=== PATIENT | female | born 1945 | race Two or more races ===

== ENCOUNTER 2017-03-24 09:59 | Emergency (ER) | payer OTHER ==
[2017-03-24 10:23] VITALS: BP 125/43; PULSE 72; TEMP 98.6; BMI 24.0
--- NOTE | 2017-03-24 10:34 | PDOC ---
History of Present Illness - General Chief Complaint: Pain Stated Complaint: LEGT PAIN Time Seen by Provider: 03/24/17 10:02 - History of Present Illness Initial Comments: 03/24/17 10:33 72 F with DM presents with acute on chronic L knee pain. Pt states that she has had pain in the knee for 30 years and was previously diagnosed with arthritis. However, over the past 4 days, it has gotten much more severe, to the point of being painful with any ambulation. Pt states she is still able to stand on it and has full range of motion but it feels like it catches when she tries to walk. Pt denies any swelling or redness. Denies calf pain. Denies recent immobilization. Denies F/C. Denies recent trauma/fall. Past History - Past Medical History Allergies/Adverse Reactions: Allergies Allergy/AdvReac Type Severity Reaction Status Date / Time No Known Allergies Allergy Verified 03/24/17 10:12 Home Medications: Ambulatory Orders Ergocalciferol [Vitamin D2] 50,000 unit PO Q7D@1000 03/24/17 Glipizide 10 mg PO TID 03/24/17 Insulin (Levemir) [Levemir Flexpen -] 4 units SQ HS 03/24/17 Diabetes: Yes Other medical history: ARTHRITIS,DIZZINESS - Suicide/Smoking/Psychosocial Hx Smoking History: Never smoked Have you smoked in the past 12 months: No Information on smoking cessation initiated: No Hx Alcohol Use: No Drug/Substance Use Hx: No Substance Use Type: None Review of Systems - Review of Systems Comments:: 03/24/17 10:52 "GENERAL/CONSTITUTIONAL: No fever or chills. No weakness. HEAD, EYES, EARS, NOSE AND THROAT: No change in vision. No ear pain or discharge. No sore throat. CARDIOVASCULAR: No chest pain or shortness of breath. RESPIRATORY: No cough, wheezing, or hemoptysis. GASTROINTESTINAL: No nausea, vomiting, diarrhea or constipation. GENITOURINARY: No dysuria, frequency, or change in urination. MUSCULOSKELETAL: +L knee pain, no swelling. No neck or back pain. SKIN: No rash NEUROLOGIC: No headache, vertigo, loss of consciousness, or change in strength/ sensation. ENDOCRINE: No increased thirst. No abnormal weight change. HEMATOLOGIC/LYMPHATIC: No anemia, easy bleeding, or history of blood clots. ALLERGIC/IMMUNOLOGIC: No hives or skin allergy. " *Physical Exam - Vital Signs Last Vital Signs Temp Pulse Resp BP Pulse Ox 98.6 F 72 18 125/43 99 03/24/17 09:59 03/24/17 09:59 03/24/17 09:59 03/24/17 09:59 03/24/17 09:59 - Physical Exam Comments: 03/24/17 10:53 "GENERAL: Awake, alert, and fully oriented, in no acute distress HEAD: No signs of trauma EYES: PERRLA, EOMI, sclera anicteric, conjunctiva clear ENT: Auricles normal inspection, hearing grossly normal, nares patent, oropharynx clear without exudates. Moist mucosa NECK: Nontender, no stepoffs, Normal ROM, supple, no lymphadenopathy, JVD, or masses LUNGS: Breath sounds equal, clear to auscultation bilaterally. No wheezes, and no crackles HEART: Regular rate and rhythm, normal S1 and S2, no murmurs, rubs or gallops ABDOMEN: Soft, nontender, normoactive bowel sounds. No guarding, no rebound. No masses EXTREMITIES: L knee tender to palpation over patellar ligament, no effusion, Normal range of motion. No deformity, no swelling to lower leg. No cords, erythema, or tenderness NEUROLOGICAL: Cranial nerves II through XII intact. 5/5 strength and sensation in all extremities, Normal speech, normal gait SKIN: Warm, Dry, normal turgor, no rashes or lesions noted. " ED Treatment Course - RADIOLOGY Radiology Studies Ordered: Category Date Time Status KNEE 3 POS-LEFT [RAD] Stat Radiology 03/24/17 10:20 Ordered DUPLEX VASCUL US-1 LEG [US] Stat Ultrasound 03/24/17 10:20 Ordered Medical Decision Making - Medical Decision Making 03/24/17 10:56 72 F with atraumatic L knee pain x 30 years, worsened over past 4 days. Likely chronic arthritis. No deformity on exam to suggest acute fx. No effusion or redness to suggest inflammatory process such as gout/pseudogout. No fevers or limitation in range of motion to suggest septic arthritis. - XR - US to r/o DVT - f/u ortho 03/24/17 11:49 US and XR negative for acute fx and DVT. Pt informed of results and understands need for orthopedics f/u to further evaluate knee pain. *DC/Admit/Observation/Transfer Diagnosis at time of Disposition: Knee pain - Discharge Dispostion Disposition: HOME Condition at time of disposition: Stable - Referrals Referrals: Eugene Reyes MD [Staff Physician] - Radha Mireles MD [Staff Physician] - - Patient Instructions Printed Discharge Instructions: DI for Knee Pain Additional Instructions: Call the number provided to make an appointment with an orthopedic surgeon. You will need an MRI for further evaluation of your knee pain. See your primary care doctor within 1-2 weeks for a re-evaluation. If you do not have one, you can call our clinic at the number provided to make an appointment. If you experience worsening pain, swelling, redness, fevers, or any other concerning symptoms, return to the ER immediately. - Attestations Physician Attestion: 03/24/17 11:51 I, Dr. Eugene Martinez MD, attest that this document has been prepared under my direction and personally reviewed by me in its entirety. I further attest, that it accurately reflects all work, treatment, procedures and medical decision -making performed by me.
== END 2017-03-24 11:58 | disposition home or self-care (01) ==
LOC: FER 09:59
DX: M25.562 Pain in left knee (principal)
CPT/HCPCS: 73562-TC-LT; 93971-TC; 99282-25

== ENCOUNTER 2017-06-12 12:08 | Emergency (ER) | payer OTHER ==
[2017-06-12] MEDS ORDERED: KETOROLAC TROMETHAMINE 30 MG/1 ML VIAL IM ONE (12:28)
[2017-06-12 12:29] VITALS: BP 154/74; PULSE 98; TEMP 98.1; BMI 24.4
[2017-06-12] MEDS ORDERED: ACETAMINOPHEN 325 MG TABLET (FP) PO ONE (12:29)
[2017-06-12] MEDS ORDERED: KETOROLAC TROMETHAMINE 30 MG/1 ML VIAL ONE (12:32)
--- NOTE | 2017-06-12 13:02 | PDOC ---
History of Present Illness - General Chief Complaint: Pain Stated Complaint: RIGHT ARM PAIN Time Seen by Provider: 06/12/17 12:15 History Source: Patient Exam Limitations: No Limitations - History of Present Illness Initial Comments: 06/12/17 12:56 72-year-old female history of diabetes hypertension here today complaining of right arm pain and shoulder pain. Patient states she has had muscle pain in the right upper extremity 4 months however last night she was trying to push or sup up from a supine position with that arm and suddenly felt a sharp pain in her right upper half of her arm states now she has pain with trying to abduct the arm. Denies any new weakness or numbness. No new neck or back pain no chest pain or shortness of breath that is new or different pain is worse with movement she took tramadol earlier about 2 hours ago with minimal relief. Has had cortisone injections due to severe arthritis in the past can remember the name of her orthopedist Past History - Past Medical History Allergies/Adverse Reactions: Allergies Allergy/AdvReac Type Severity Reaction Status Date / Time No Known Allergies Allergy Verified 06/12/17 12:24 Home Medications: Ambulatory Orders Ergocalciferol [Vitamin D2] 50,000 unit PO Q7D@1000 03/24/17 Glipizide 10 mg PO DAILY 03/24/17 Insulin (Levemir) [Levemir Flexpen -] 4 units SQ HS 03/24/17 Atenolol [Tenormin -] 12.5 mg PO BID 06/12/17 Ibuprofen [Motrin -] 600 mg PO TID #90 tablet 06/12/17 Omeprazole 20 mg PO DAILY PRN 06/12/17 Tramadol HCl [Ultram] 50 mg PO ONCE 06/12/17 COPD: No Diabetes: Yes Disorders: Yes (GERD) HTN: Yes Other medical history: TINNITUS - Suicide/Smoking/Psychosocial Hx Smoking History: Never smoked Have you smoked in the past 12 months: No Hx Alcohol Use: No Drug/Substance Use Hx: No Substance Use Type: None Review of Systems - Review of Systems Constitutional: No: Chills, Diaphoresis HEENTM: No: Blurred Vision Respiratory: No: Cough, Orthopnea Cardiac (ROS): No: Chest Pain ABD/GI: No: Abdominal Distended Musculoskeletal: Yes: Joint Pain Integumentary: No: Bruising, Change in Color Neurological: No: Headache, Numbness All Other Systems: Reviewed and Negative *Physical Exam - Vital Signs Last Vital Signs Temp Pulse Resp BP Pulse Ox 98.1 F 98 H 16 154/74 98 06/12/17 12:12 06/12/17 12:12 06/12/17 12:12 06/12/17 12:12 06/12/17 12:12 - Physical Exam General Appearance: Yes: Appropriately Dressed HEENT: positive: Normal ENT Inspection Neck: positive: Trachea midline Respiratory/Chest: positive: Lungs Clear, Normal Breath Sounds Cardiovascular: positive: Regular Rhythm, Regular Rate, S1, S2 Musculoskeletal: positive: Normal Inspection, Other (Right arm with muscular tenderness over the humeral region pain with passive range of motion beyond 90 abduction. Elbow/wrist FROM/NT. Distally neurovascularly intact no midline spinal tenderness right sided mild trapezial muscle tenderness) Extremity: positive: Normal Range of Motion (see above). negative: Normal Capillary Refill Integumentary: positive: Normal Color, Dry, Warm Neurologic: positive: Fully Oriented, Alert, Normal Mood/Affect ED Treatment Course - RADIOLOGY Radiology Studies Ordered: Category Date Time Status HUMERUS-RIGHT [RAD] Stat Radiology 06/12/17 12:29 Taken SHOULDER-RIGHT [RAD] Stat Radiology 06/12/17 12:29 Taken - Medications Given in the ED: ED Medications Discontinued Medications Generic Name Dose Route Start Last Admin Trade Name Freq PRN Reason Stop Dose Admin Acetaminophen 650 mg 06/12/17 12:29 06/12/17 12:36 Tylenol - PO 06/12/17 12:30 Not Given ONCE ONE Ketorolac Tromethamine 30 mg 06/12/17 12:28 06/12/17 12:35 Toradol Injection - IM 06/12/17 12:29 30 mg ONCE ONE Administration Medical Decision Making - Medical Decision Making 06/12/17 13:00 Status post right upper extremity injury and now pain with abduction. Differential includes humeral fracture versus shoulder injury sutures rotator cuff injury and trapezial spasm. Bicep tendon is intact and flexion of the right arm at the elbow as far out of 5 plan for anti-inflammatory medication with Motrin x-rays of the humerus and right shoulder and likely outpatient orthopedic follow-up X-rays are n negative *DC/Admit/Observation/Transfer Diagnosis at time of Disposition: Rotator cuff injury, Muscle strain - Discharge Dispostion Disposition: HOME Condition at time of disposition: Improved Admit: No - Prescriptions Prescriptions: Ibuprofen [Motrin -] 600 mg PO TID #90 tablet - Referrals Referrals: Tyrell Castillo [Primary Care Provider] - Jl Goode MD [Staff Physician] - - Patient Instructions Printed Discharge Instructions: Shoulder Sprain Additional Instructions: Follow-up with an orthopedist within 1-2 weeks as needed for persistent pain. See referral information for Dr. Goode call to schedule you can take ibuprofen 600 mg every 8 hours as needed for pain could also take Tylenol 500 mg every 6 hours as needed for pain return for worsening symptoms weakness numbness or any concerns. Your x-rays are negative for any fracture today - Post Discharge Activity
== END 2017-06-12 13:18 | disposition home or self-care (01) ==
LOC: FER 12:08
PROC: 3E0233Z Introduction of Anti-inflammatory into Muscle, Percutaneous Approach (ICD-10-PCS; principal; 2017-06-12)
DX: S46.011A Strain of muscle(s) and tendon(s) of the rotator cuff of right shoulder, initial encounter (principal); X58.XXXA Exposure to other specified factors, initial encounter; Y93.9 Activity, unspecified; Y92.9 Unspecified place or not applicable; S46.001A Unspecified injury of muscle(s) and tendon(s) of the rotator cuff of right shoulder, initial encounter; E11.9 Type 2 diabetes mellitus without complications; I10 Essential (primary) hypertension; K21.9 Gastro-esophageal reflux disease without esophagitis
CPT/HCPCS: 73030-TC-RT; 73060-TC-RT; 99282-25

== ENCOUNTER 2020-05-25 07:18 | Emergency (ER) | payer OTHER ==
[2020-05-25 07:36] VITALS: BMI 21.7
[2020-05-25] MEDS ORDERED: FAMOTIDINE 20 MG/50 ML IVPB 20 MG/50 ML MG IVPB ONE ×2 (07:56→08:17)
[2020-05-25] MEDS ORDERED: LACTATED RINGERS SOLUTION 1000 ML INFUS.BAG IV ONE ×2 (07:56→10:33)
[2020-05-25] MEDS ORDERED: SODIUM CHLORIDE 0.9% 1000 ML INFUS.BAG IV ONE (08:19)
[2020-05-25 09:11] LABS: BASO % 0.3 % (0-2.0); HEMATOCRIT 35.8 % (32.4-45.2); HEMOGLOBIN 11.7 GM/dL (10.7-15.3); LYMPH % 15.9 % (8-40); MCH 28.5 pg (25.7-33.7); MCHC 32.5 g/dl (32.0-36.0); MEAN CELL VOLUME 87.8 fl (80-96); MEAN PLT VOLUME 10.1 fl (7.5-11.1); NEUT % 72.8 % (42.8-82.8); PLATELET COUNT 157 K/MM3 (134-434); RBC 4.08 M/mm3 (3.60-5.2); WHITE BLOOD COUNT 3.1 K/mm3 (4.0-10.0)
[2020-05-25 09:15] LABS: EPI CELLS >36 /uL (0-25.1); HYALINE CASTS 1 /uL (0-3.1); URINE APPEARANCE CLEAR; URINE BACTERIA 505 /uL (0-1359); URINE BILIRUBIN NEGATIVE (NEGATIVE); URINE COLOR YELLOW; URINE GLUCOSE (UA) TRACE (NEGATIVE); URINE KETONE NEGATIVE (NEGATIVE); URINE LEUK ESTERASE TRACE (NEGATIVE); URINE NITRITE NEGATIVE (NEGATIVE); URINE PROTEIN NEGATIVE (NEGATIVE); URINE RBC 32 /uL (0-23.9); URINE UROBILINOGEN 0.2 mg/dL (0.2-1.0); URINE WBC 24 /uL (0-25.8)
[2020-05-25 09:18] LABS: INR 1.03 (0.83-1.09); PROTHROMBIN TIME (PATIENT) 12.7 SEC (9.7-13.0)
[2020-05-25 09:20] LABS: ACTIVATED PTT 29.7 SECONDS (25.2-36.5)
[2020-05-25 09:29] LABS: CHLORIDE 99 mmol/L (98-107); POTASSIUM 3.6 mmol/L (3.5-5.1); SODIUM 134 mmol/L (136-145)
[2020-05-25 09:31] LABS: ANION GAP 9 MMOL/L (8-16); BLOOD UREA NITROGEN 9.8 mg/dL (7-18); CALCIUM 8.4 mg/dL (8.5-10.1); CO2 26 mmol/L (21-32); LIPASE 289 U/L (73-393)
[2020-05-25 09:32] LABS: ALBUMIN 3.2 g/dl (3.4-5.0); GLUCOSE,RANDOM 228 mg/dL (74-106); MAGNESIUM 2.1 mg/dL (1.8-2.4)
[2020-05-25 09:34] LABS: CREATININE 0.9 mg/dL (0.55-1.3); SGOT/AST 20 U/L (15-37); SGPT/ALT 17 U/L (13-61)
[2020-05-25 09:36] LABS: BILIRUBIN,TOTAL 0.4 mg/dL (0.2-1); TOT PROT 6.6 g/dl (6.4-8.2)
[2020-05-25 09:37] LABS: ALK PHOS 68 U/L (45-117)
[2020-05-25 12:08] VITALS: BP 123/58; PULSE 88; TEMP 98.2
== END 2020-05-25 12:05 | disposition home or self-care (01) ==
LOC: JER 07:18
PROC: 3E033NZ Introduction of Analgesics, Hypnotics, Sedatives into Peripheral Vein, Percutaneous Approach (ICD-10-PCS; principal; 2020-05-25)
DX: R19.7 Diarrhea, unspecified (principal); R42 Dizziness and giddiness; R30.0 Dysuria; U07.1 COVID-19
CPT/HCPCS: 36415; 71045-TC-FY; 80053; 81003; 82550; 83690; 83735; 84484; 85025; 85610; 85730; 87077; 87086; 93005; 93010; 96365; 99284-25; C9803; U0003